=== PATIENT | male | born 1955 | race Caucasian/White ===

== ENCOUNTER 2022-03-12 21:42 | Emergency (ER) | payer MEDICARE, OTHER ==
[2022-03-12 22:38] LABS: ESTIMATED GFR 107 mL/min (>60)
[2022-03-12] MEDS ORDERED: Diltiazem IR 60 MG Tab PO ONE (23:17)
[2022-03-13] MEDS ORDERED: Metoprolol Tartrate 50 MG Tab PO ONE (07:14)
[2022-03-13 07:24] VITALS: BP 119/73; PULSE 128
== END 2022-03-13 09:40 ==
LOC: FB.ED 21:42
DX: I48.0 Paroxysmal atrial fibrillation (principal); G90.01 Carotid sinus syncope; J43.1 Panlobular emphysema; Z88.1 Allergy status to other antibiotic agents; Z88.8 Allergy status to other drugs, medicaments and biological substances; Z79.899 Other long term (current) drug therapy; Z79.82 Long term (current) use of aspirin
CPT/HCPCS: 36415; 80048; 83880; 84484; 85025; 93005; 99284; A9270-GY